=== PATIENT | female | born 1970 | race Caucasian/White ===

== ENCOUNTER 2020-06-08 17:26 | Emergency (ER) | payer OTHER ==
[~2020-06-08] VITALS: Ht 162.6 cm; Wt 93.0 kg
[2020-06-08] MEDS ORDERED: HYDROcodone-ACET 10/325MG TAB PO ONE (19:15)
[2020-06-08 20:55] VITALS: BP 149/95
== END 2020-06-08 22:03 | disposition home or self-care (01) ==
LOC: ER 17:28
DX: S42.214A Unspecified nondisplaced fracture of surgical neck of right humerus, initial encounter for closed fracture (principal); S61.210A Laceration without foreign body of right index finger without damage to nail, initial encounter; Z88.1 Allergy status to other antibiotic agents; V86.59XA Driver of other special all-terrain or other off-road motor vehicle injured in nontraffic accident, initial encounter; Y93.89 Activity, other specified; Y92.89 Other specified places as the place of occurrence of the external cause; Y99.8 Other external cause status
CPT/HCPCS: 29105; 73030; 73110; 73130